=== PATIENT | male | born 1980 | race American Indian/Alaskan Native ===

== ENCOUNTER 2018-08-25 01:28 | Emergency (ER) | payer SELFPAY ==
[2018-08-25 01:41] VITALS: RESP 18; O2SAT 99
--- NOTE | 2018-08-25 02:17 | ED PDOC ---
HPI: Psych/Substance Abuse Time Seen by Provider: 08/25/18 01:35 Chief Complaint (Nursing): Psychiatric Evaluation Chief Complaint (Provider): Psychiatric Evaluation ED Caveat: Psychotic History Per: Patient, EMS History/Exam Limitations: clinical condition Current Symptoms Are (Timing): Still Present Additional Complaint(s): 38 year old -Indian male with medical history of psychiatric disorder, arrives to the emergency department via EMS for a crisis evaluation. Police department was called as patient was observed with bizarre behavior including frequently touching his genitalia in public. At present, he denies any physical complaints, however, reports seeing people who have . Otherwise, no suicidal or homicidal ideation reported. Past Medical History Reviewed: Historical Data, Nursing Documentation, Vital Signs Vital Signs: Last Vital Signs Temp 98.8 F 08/25/18 01:37 Pulse 106 H 08/25/18 01:37 Resp 18 08/25/18 01:37 BP 138/88 08/25/18 01:37 Pulse Ox 99 08/25/18 01:37 Primary Care Provider: FAMILY PROVIDER,NO - Family History Family History: States: Unknown Family Hx - Home Medications Home Medications: Ambulatory Orders Medication Instructions Recorded Unobtainable 08/18/16 - Allergies Allergies/Adverse Reactions: Allergies Allergy/AdvReac Type Severity Reaction Status Date / Time No Known Allergies Allergy Verified 08/25/18 01:37 Review of Systems ROS Statement: Except As Marked, All Systems Reviewed And Found Negative Psych: Positive for: Psychosis (visual hallucination). Negative for: Suicidal ideation (or homicidal ideation) Physical Exam - Reviewed Nursing Documentation Reviewed: Yes Vital Signs Reviewed: Yes - Physical Exam Appears: Positive for: No Acute Distress Head Exam: Positive for: ATRAUMATIC, NORMAL INSPECTION, NORMOCEPHALIC Skin: Positive for: Normal Color Eye Exam: Positive for: Normal appearance ENT: Positive for: Normal ENT Inspection Neck: Positive for: Normal Cardiovascular/Chest: Positive for: Regular Rate, Rhythm. Negative for: Murmur, Bradycardia, Tachycardia Respiratory: Positive for: Normal Breath Sounds. Negative for: Respiratory Distress Pulses-Radial (L): 2+ Pulses-Radial (R): 2+ Extremity: Positive for: Normal ROM (upper/lower) Neurological/Psych: Positive for: Awake, Mood/Affect (flat), Other (internally preoccupied) - ECG O2 Sat by Pulse Oximetry: 99 (RA) Pulse Ox Interpretation: Normal Medical Decision Making Medical Decision Making: Initial Impression: 38 year old -Indian male with visual hallucination in setting of known psychiatric disorder. Initial Plan: Psychiatric evaluation Time: 299 --Evaluated by bridge ironworker. Patient is cleared for discharge home as he is presently at baseline. Upon provider re-evaluation, patient is medically stable, reports improvement in symptoms, and requires no further treatment in the ED at this time. Findings and plan were discussed with patient who verbalizes understanding. Counseling was provided and all questions were answered regarding diagnosis. There is agreement to discharge plan. Return precautions discussed. Clinical Impression: schizophrenia Scribe Attestation: Documented by Anita Pelaez, acting as a scribe for Tio Rolle MD. Provider Scribe Attestation: All medical record entries made by the Scribe were at my direction and personally dictated by me. I have reviewed the chart and agree that the record accurately reflects my personal performance of the history, physical exam, medical decision making, and the department course for this patient. I have also personally directed, reviewed, and agree with the discharge instructions and disposition. Disposition - Clinical Impression Clinical Impression: Schizophrenia - Patient ED Disposition Is Patient to be Admitted: No Counseled Patient/Family Regarding: Studies Performed, Diagnosis - Disposition Disposition: Routine/Home Disposition Time: 03:00 Condition: STABLE Instructions: Schizophrenia Forms: [employer] (Croatian)
[2018-08-25 03:23] VITALS: BP 132/74; PULSE 89; TEMP 98.6
== END 2018-08-25 03:23 | disposition home or self-care (01) ==
LOC: H.ER 01:28
DX: F20.9 Schizophrenia, unspecified (principal); Z00.8 Encounter for other general examination